=== PATIENT | male | born 2000 | race Caucasian/White ===

== ENCOUNTER 2021-01-22 14:37 | Emergency (ER) | payer OTHER ==
[2021-01-22] MEDS ORDERED: NAPROXEN500 MG PO (18:04)
[2021-01-22] MEDS ORDERED: NORCO 5-325 TA1 EACH PO (18:04)
[2021-01-22] MEDS ORDERED: BACTRIM DS TAB1 EACH PO (18:04)
== END 2021-01-22 18:43 | disposition home or self-care (01) ==
LOC: FER 14:37
DX: R68.84 Jaw pain (principal); R07.89 Other chest pain; M79.652 Pain in left thigh; F17.290 Nicotine dependence, other tobacco product, uncomplicated